=== PATIENT | female | born 1965 | race Caucasian/White ===

== ENCOUNTER 2023-02-11 13:03 | Day surgery (SDC) | payer MEDICARE ==
[2023-02-11] MEDS ORDERED: Depo-Medrol 40 MG/ML IM ONE (13:04)
[2023-02-11] MEDS ORDERED: BUPIVACAINE 0.5% VIAL IJ ONE (13:04)
[2023-02-11] MEDS ORDERED: Versed 2 MG/2 ML Injection ONE (13:22)
[2023-02-11] MEDS ORDERED: DIPRIVAN 200 MG/20 ML IV ONE (14:14)
[2023-02-11] MEDS ORDERED: Lactated Ringers 1,000 ML IV ONE (14:48)
--- NOTE | 2023-02-11 18:33 | XRAY ---
Indication: Bilateral SI joint and bilateral greater trochanter bursa injection. Intraoperative fluoroscopy provided for 27 seconds. 8 digital spot image obtained prone submitted for interpretation demonstrates needle tip projecting over the left and right SI joint. Additional needle tip lateral to the left and right greater trochanters with small amount of contrast injected for needle tip placement. Correlate with intraoperative findings/report.
--- NOTE | 2023-02-12 17:15 | XRAY ---
27 seconds of fluoroscopy was used in surgery for bilateral SI joint injections and a right hip intra-articular injection.
== END 2023-02-11 14:40 | disposition home or self-care (01) ==
LOC: SDC-PAIN 13:03
PROVIDERS: ATTEND Psychiatry & Neurology Pain Medicine
DX: M46.1 Sacroiliitis, not elsewhere classified (principal); Z79.899 Other long term (current) drug therapy
CPT/HCPCS: 01992; 20610; 27096; 73502; 77002; G0260; J1030; J2250; J2704; Q9966